=== PATIENT | female | born 2000 | race African-American/Black ===

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

== ENCOUNTER 2018-10-10 17:20 | Emergency (ER) | payer MEDICAID, OTHER ==
[~2018-10-10] VITALS: Ht 172.7 cm; Wt 59.4 kg
[2018-10-10 17:25] VITALS: BP 106/66
--- NOTE | 2018-10-10 17:47 | NUR ---
[address] ROMERO.
--- NOTE | 2018-10-10 17:52 | NUR ---
PT AMBULATED TO BED 02.
--- NOTE | 2018-10-10 18:05 | NUR ---
PT C/O CONSTANT PRESSURE-LIKE CHEST PAIN X 1 WEEK. WOKE UP TO CP ONE WEEK AGO AND IT WAS ONLY IN THE AM. IN THE PAST 2-3 DAYS, CP HAS BEEN CONSTANT THROUGHOUT THE DAY. STATES 9/10 STERNAL PRESSURE AT THIS TIME. STATES INCREASED CP WITH EXERTION, DEEP BREATHING, AND COUGHING. CP IMPROVES WITH REST. DENIES N/V, LIGHTHEADEDNESS/DIZZY. STATES DIAPHORESIS DURING THE NIGHTTIME ONLY. NAD AT THIS TIME, CALM. VSS; PATIENT POSITIONED FOR COMFORT; HOB ELEVATED; BEDRAILS UP X1; BED DOWN. ER MD MADE AWARE OF PT STATUS. PT IS ON MONITOR.
[2018-10-10] MEDS ORDERED: NACL 0.9% 1,000 ML IV ONE (18:30)
[2018-10-10] MEDS ORDERED: KETOROLAC 15 MG/ML VIAL IVP ONE (18:30)
--- NOTE | 2018-10-10 19:10 | NUR ---
Pt report given at bedside to PERLA Knapp. Transfer of care at this time.
--- NOTE | 2018-10-10 19:20 | NUR ---
PT LEFT TO XRAY VIA WHEELCHAIR
[2018-10-10 19:21] LABS: EOSINOPHILS # (AUTO) 0.1 K/uL (0-0.4); HEMOGLOBIN 9.6 g/dL (12.0-16.0); MONOCYTES # (AUTO) 0.5 K/uL (0.8-1.0)
[2018-10-10 19:26] LABS: BASOPHILS % (AUTO) 0.3 % (0.0-2.0); EOSINOPHILS % (AUTO) 0.9 % (0.0-4.0); HEMATOCRIT 31.7 % (36-48); LYMPHOCYTES # (AUTO) 2.2 K/uL (2.5-16.5); LYMPHOCYTES % (AUTO) 21.6 % (20.5-51.1); MEAN CORPUSCULAR HEMOGLOBIN 22 pg (27-31); MEAN CORPUSCULAR HGB CONC 30 g/dL (33-37); MEAN CORPUSCULAR VOLUME 73.7 fL (80-94); MONOCYTES % (AUTO) 4.7 % (1.7-9.3); NEUTROPHILS # (AUTO) 7.2 K/uL (1.8-7.7); NEUTROPHILS % (AUTO) 72.5 % (42.2-75.2); PLATELET COUNT (AUTO) 557 K/uL (140-450); RED CELL DISTRIBUTION WIDTH 17.2 % (11.6-13.7)
[2018-10-10 19:50] LABS: ANION GAP 9.8 (8-16); CARBON DIOXIDE 27.8 mmol/L (21-32); CREATININE 0.6 mg/dL (0.6-1.3); POTASSIUM 3.6 mmol/L (3.5-5.1)
--- NOTE | 2018-10-10 20:00 | NUR ---
ERMD AT BEDSIDE
--- NOTE | 2018-10-10 20:15 | NUR ---
PT RESTING IN BED COMFORTABLY. VSS. WILL CONTINUE TO MONITOR.
--- NOTE | 2018-10-10 21:30 | NUR ---
PT RESTING IN BED ON CELL PHONE. VSS. WILL CONTINUE TO MONITOR.
--- NOTE | 2018-10-10 22:30 | NUR ---
PT RESTING IN BED COMFORTABLY. VSS. WILL CONTINUE TO MONITOR.
[2018-10-10 22:57] VITALS: BP 102/62
--- NOTE | 2018-10-10 23:43 | NUR ---
Patient does not wish to proceed with medical care recommended by Dr. Bryant. Patient given information related to possible complications, up to and including , which could occur as a result of leaving hospital at this time. Patient verbalizes understanding of risks involved leaving against medical advice. Patient has signed AMA form.
== END 2018-10-10 23:43 | disposition left against medical advice (07) ==
LOC: MED 17:20
DX: R07.89 Other chest pain (principal); R06.02 Shortness of breath; M34.9 Systemic sclerosis, unspecified; Z88.8 Allergy status to other drugs, medicaments and biological substances
CPT/HCPCS: 36415; 71046; 80048; 81002; 81025; 85025; 85379; 93005; 96374; 99284; J1885; J7030